=== PATIENT | male | born 1985 | race Caucasian/White ===

== ENCOUNTER 2018-02-06 22:19 | Inpatient (IN) | payer OTHER ==
[2018-02-06] MEDS ORDERED: ACETAMINOPHEN 325 MG TAB PO (23:30)
[2018-02-06] MEDS ORDERED: ONDANSETRON 4 MG INJ IV (23:30)
[2018-02-06] MEDS ORDERED: NACL 0.9% 3 ML SYG IV (23:30)
[2018-02-06] MEDS ORDERED: VANCOMYCIN IV PER PHARMACY XX (23:30)
[2018-02-07 00:59] LABS: ADD MAN DIFF? NO
[2018-02-07 01:02] LABS: WHITE BLOOD COUNT 11.4 10^3/ul (4.8-10.8)
[2018-02-07 01:02] LABS: BASOPHILS % 0.1 % (0.0-2.0); HEMATOCRIT 40.3 % (42.0-52.0); HEMOGLOBIN 13.7 g/dl (14.0-18.0); LYMPHOCYTES # 0.8 10^3/ul (0.8-2.9); LYMPHOCYTES % 7.1 % (15.0-51.0); MEAN CORPUSCULAR HEMOGLOBIN 27.5 pg (29.0-33.0); MEAN CORPUSCULAR VOLUME 80.9 fl (82.0-101.0); MEAN PLATELET VOLUME 10.3 fl (7.4-10.4); MONOCYTE # 0.5 10^3/ul (0.3-0.9); MONOCYTES % 4.2 % (0.0-11.0); NEUTROPHILS % 87.7 % (39.0-77.0); PLATELET COUNT 304 10^3/UL (140-415); RED BLOOD COUNT 4.98 10^6/ul (4.70-6.10); RED CELL DISTRIBUTION WIDTH 12.8 % (11.5-14.5)
[2018-02-07 01:20] LABS: ALANINE AMINOTRANSFERASE 24 IU/L (13-69); ALBUMIN 4.4 g/dl (3.3-4.9); ALBUMIN/GLOBULIN RATIO 1.37; ALKALINE PHOSPHATASE 102 IU/L (42-121); ANION GAP 19 (8-16); ASPARTATE AMINO TRANSFERASE 16 IU/L (15-46); BILIRUBIN,INDIRECT 0.1 mg/dl (0-1.1); BILIRUBIN,TOTAL 0.1 mg/dl (0.2-1.3); BLOOD UREA NITROGEN 20 mg/dl (7-20); CALCIUM 9.7 mg/dl (8.4-10.2); CARBON DIOXIDE 28 mmol/L (21-31); CHLORIDE 102 mmol/L (97-110); CHOL/HDL RATIO 4.8 RATIO; CHOLESTEROL 184 mg/dl (100-200); CREATININE 0.83 mg/dl (0.61-1.24); GLUCOSE 141 mg/dl (70-220); HDL CHOLESTEROL 38 mg/dl (28-63); LDL CHOLESTEROL,CALCULATED 128 mg/dl; MAGNESIUM 2.2 mg/dl (1.7-2.5); SODIUM 145 mmol/L (135-144); TOTAL PROTEIN 7.6 g/dl (6.1-8.1); TRIGLYCERIDES 90 mg/dl (0-149)
[2018-02-07] MEDS: PIPER-TAZO 3.375 GM IV (PMX) 100 ML IVPB ×5 (01:26→23:14)
[2018-02-07] MEDS: DEXAMETHASONE 4 MG/ML 1 ML INJ IV ×3 (01:26→11:49)
[2018-02-07 01:33] LABS: HEMOGLOBIN A1C 5.2 % (0-5.9)
[2018-02-07 01:49] LABS: THYROID STIMULATING HORMONE 0.231 MIU/L (0.465-4.680)
[2018-02-07 02:12] LABS: C-REACTIVE PROTEIN 20.7 mg/dl (0.0-0.9)
[2018-02-07 02:19] LABS: ERYTHROCYTE SEDIMENTATION RATE 59 mm/Hr (0-15)
[2018-02-07] MEDS: VANCOMYCIN 1.5 GM in SOD CHLORIDE 0.9% 250 ML IVPB ×3 (02:21→18:57)
[2018-02-07] MEDS: PANTOPRAZOLE (EC) 40 MG TAB PO (09:40)
[2018-02-07] MEDS: KETOROLAC 30 MG INJ IV ×2 (11:49→23:15)
[2018-02-07 23:02] LABS: SITE Left Upper Forearm; TIME 2250
[2018-02-08 01:51] LABS: VANCOMYCIN,TROUGH 16.7 ug/ml (10.0-20.0)
[2018-02-08] MEDS: VANCOMYCIN 1.5 GM in SOD CHLORIDE 0.9% 250 ML IVPB ×3 (02:22→18:43)
[2018-02-08] MEDS: KETOROLAC 30 MG INJ IV ×3 (05:21→22:29)
[2018-02-08] MEDS: PIPER-TAZO 3.375 GM IV (PMX) 100 ML IVPB ×4 (05:25→22:10)
[2018-02-08 06:15] LABS: ABNORMAL IP MESSAGE 1; HEMATOCRIT 34.4 % (42.0-52.0); HEMOGLOBIN 11.8 g/dl (14.0-18.0); MEAN CORPUSCULAR HEMOGLOBIN 27.6 pg (29.0-33.0); MEAN CORPUSCULAR HGB CONC 34.3 g/dl (32.0-37.0); MEAN CORPUSCULAR VOLUME 80.6 fl (82.0-101.0); MEAN PLATELET VOLUME 10.5 fl (7.4-10.4); PLATELET COUNT 288 10^3/UL (140-415); POSITIVE DIFF @See below; RED BLOOD COUNT 4.27 10^6/ul (4.70-6.10); RED CELL DISTRIBUTION WIDTH 13.2 % (11.5-14.5)
[2018-02-08 06:15] LABS: WHITE BLOOD COUNT 14.6 10^3/ul (4.8-10.8)
[2018-02-08 06:29] LABS: ADD MAN DIFF? YES
[2018-02-08 06:51] LABS: ANION GAP 18 (8-16); BLOOD UREA NITROGEN 18 mg/dl (7-20); CALCIUM 8.9 mg/dl (8.4-10.2); CARBON DIOXIDE 24 mmol/L (21-31); CHLORIDE 108 mmol/L (97-110); CREATININE 0.81 mg/dl (0.61-1.24); GLUCOSE 128 mg/dl (70-220); MAGNESIUM 2.1 mg/dl (1.7-2.5); SODIUM 146 mmol/L (135-144)
[2018-02-08] MEDS: HYDROCODONE/APAP (5/325) TAB PO (08:43)
[2018-02-08 09:27] LABS: ANISOCYTOSIS 2+ (0-0); BAND NEUTROPHILS #M 0.4 10^3/ul (0.0-0.6); BAND NEUTROPHILS % (M) 3 % (0-4); GIANT THROMBO% (M) 1 % (0-0); LYMPHOCYTES #M 1.7 10^3/ul (0.8-2.9); LYMPHOCYTES % (M) 12 % (15-51); MICROCYTOSIS 2+ (0-0); MONOCYTE #M 0.1 10^3/ul (0.3-0.9); MONOCYTES % (M) 1 % (0-11); PLATELET ESTIMATE NORMAL; REACTIVE LYMPHOCYTES #M 0.4 10^3/ul (0.0-0.0); REACTIVE LYMPHOCYTES% (M) 3 % (0-0); SEG NEUT #M 11.9 10^3/ul (1.6-7.5); SEGMENTED NEUTROPHILS (M) % 81 % (39-77); SMUDGE%M 4 % (0-0)
[2018-02-08] MEDS: HYDROCODONE/APAP (10/325) TAB PO ×2 (10:42→20:18)
[2018-02-08] MEDS: morphine 2 MG INJ IV (14:44)
[2018-02-08] MEDS: HYDROmorphONE 0.5 MG/0.5 ML SYG IV ×2 (15:27→16:07)
[2018-02-09] MEDS: PIPER-TAZO 3.375 GM IV (PMX) 100 ML IVPB ×5 (02:11→23:14)
[2018-02-09] MEDS: VANCOMYCIN 1.5 GM in SOD CHLORIDE 0.9% 250 ML IVPB ×3 (02:45→17:34)
[2018-02-09] MEDS: HYDROCODONE/APAP (10/325) TAB PO ×3 (02:49→16:47)
[2018-02-09] MEDS: KETOROLAC 30 MG INJ IV ×3 (04:40→21:21)
[2018-02-09 06:16] LABS: WHITE BLOOD COUNT 9.2 10^3/ul (4.8-10.8)
[2018-02-09 06:16] LABS: ABNORMAL IP MESSAGE 1; HEMATOCRIT 36.3 % (42.0-52.0); HEMOGLOBIN 12.2 g/dl (14.0-18.0); MEAN CORPUSCULAR HEMOGLOBIN 27.4 pg (29.0-33.0); MEAN CORPUSCULAR HGB CONC 33.6 g/dl (32.0-37.0); MEAN CORPUSCULAR VOLUME 81.6 fl (82.0-101.0); MEAN PLATELET VOLUME 10.1 fl (7.4-10.4); PLATELET COUNT 253 10^3/UL (140-415); POSITIVE DIFF @See below; RED BLOOD COUNT 4.45 10^6/ul (4.70-6.10); RED CELL DISTRIBUTION WIDTH 13.4 % (11.5-14.5)
[2018-02-09 07:03] LABS: ADD MAN DIFF? YES
[2018-02-09] MEDS: DOCUSATE SODIUM 100 MG CAP PO (08:22)
[2018-02-09 09:44] LABS: ANISOCYTOSIS 1+ (0-0); BAND NEUTROPHILS % (M) 1 % (0-4); LYMPHOCYTES % (M) 11 % (15-51); MONOCYTE #M 0.8 10^3/ul (0.3-0.9); MONOCYTES % (M) 9 % (0-11); OVALOCYTES 1+ (0-0); PLATELET ESTIMATE NORMAL; POIKILOCYTOSIS 1+ (0-0); SEG NEUT #M 7.3 10^3/ul (1.6-7.5); SEGMENTED NEUTROPHILS (M) % 79 % (39-77); SMUDGE%M 4 % (0-0)
[2018-02-09] MEDS: INFLUENZA VIRUS VACCINE 0.5 ML (DISPENSING) IM* (12:11)
[2018-02-09] MEDS: LORAZEPAM 1 MG TAB PO (13:02)
[2018-02-09] MEDS ORDERED: ACETAMINOPHEN 325 MG TAB PO (18:30)
[2018-02-09 21:31] LABS: FORTY EIGHT HOUR READING 0 mm (0-9)
[2018-02-09] MEDS: ONDANSETRON 4 MG INJ IV (23:16)
[2018-02-10] MEDS: VANCOMYCIN 1.5 GM in SOD CHLORIDE 0.9% 250 ML IVPB ×2 (02:06→10:00)
[2018-02-10] MEDS: HYDROCODONE/APAP (10/325) TAB PO ×2 (02:12→05:53)
[2018-02-10] MEDS: PIPER-TAZO 3.375 GM IV (PMX) 100 ML IVPB ×3 (05:55→17:09)
[2018-02-10] MEDS: DOCUSATE SODIUM 100 MG CAP PO (08:15)
[2018-02-10 09:37] LABS: ADD MAN DIFF? NO
[2018-02-10 09:45] LABS: WHITE BLOOD COUNT 9.9 10^3/ul (4.8-10.8)
[2018-02-10 09:45] LABS: BASOPHILS % 0.4 % (0.0-2.0); EOSINOPHILS # 0.1 10^3/ul (0.0-0.5); EOSINOPHILS % 0.7 % (0.0-7.0); HEMATOCRIT 37.8 % (42.0-52.0); HEMOGLOBIN 12.8 g/dl (14.0-18.0); LYMPHOCYTES # 0.9 10^3/ul (0.8-2.9); LYMPHOCYTES % 8.8 % (15.0-51.0); MEAN CORPUSCULAR HEMOGLOBIN 27.2 pg (29.0-33.0); MEAN CORPUSCULAR HGB CONC 33.9 g/dl (32.0-37.0); MEAN CORPUSCULAR VOLUME 80.4 fl (82.0-101.0); MEAN PLATELET VOLUME 10.1 fl (7.4-10.4); MONOCYTE # 0.9 10^3/ul (0.3-0.9); MONOCYTES % 8.6 % (0.0-11.0); NEUTROPHIL # 7.9 10^3/ul (1.6-7.5); NEUTROPHILS % 79.8 % (39.0-77.0); NUCLEATED RED BLOOD CELLS% 0.2 /100WBC (0.0-0.0); PLATELET COUNT 257 10^3/UL (140-415)
[2018-02-10 10:05] LABS: ALANINE AMINOTRANSFERASE 38 IU/L (13-69); ALBUMIN 3.6 g/dl (3.3-4.9); ALBUMIN/GLOBULIN RATIO 1.16; ALKALINE PHOSPHATASE 68 IU/L (42-121); ANION GAP 15 (8-16); ASPARTATE AMINO TRANSFERASE 16 IU/L (15-46); BILIRUBIN,INDIRECT 0.3 mg/dl (0-1.1); BILIRUBIN,TOTAL 0.3 mg/dl (0.2-1.3); BLOOD UREA NITROGEN 11 mg/dl (7-20); CALCIUM 8.8 mg/dl (8.4-10.2); CARBON DIOXIDE 29 mmol/L (21-31); CHLORIDE 98 mmol/L (97-110); CREATININE 0.96 mg/dl (0.61-1.24); GLUCOSE 120 mg/dl (70-220); POTASSIUM 3.7 mmol/L (3.5-5.1); SODIUM 138 mmol/L (135-144); TOTAL PROTEIN 6.7 g/dl (6.1-8.1)
[2018-02-10 10:09] LABS: VANCOMYCIN,TROUGH 12.6 ug/ml (10.0-20.0)
[2018-02-10] MEDS: SOD CHLORIDE 0.9% 100 ML (10:09)
[2018-02-10] MEDS: IOHEXOL 300MG/ML 150 ML BTL (10:09)
[2018-02-10 12:43] LABS: ADD UMIC NO; UR ASCORBIC ACID NEGATIVE (NEGATIVE); UR BILIRUBIN (Dip) NEGATIVE (NEGATIVE); UR BLOOD (Dip) NEGATIVE (NEGATIVE); UR CLARITY CLEAR (CLEAR); UR COLOR YELLOW (YELLOW); UR GLUCOSE (Dip) NEGATIVE (NEGATIVE); UR KETONES (Dip) NEGATIVE (NEGATIVE); UR LEUKOCYTE ESTERASE (Dip) NEGATIVE Leu/ul (NEGATIVE); UR NITRITE (Dip) NEGATIVE (NEGATIVE); UR SPECIFIC GRAVITY (Dip) > 1.060 (1.003-1.030); UR TOTAL PROTEIN (Dip) NEGATIVE (NEGATIVE); UR UROBILINOGEN (Dip) NEGATIVE (NEGATIVE)
[2018-02-10] MEDS: IBUPROFEN 600 MG TAB PO (15:57)
[2018-02-10 18:06] LABS: FREE T4 (FREE THYROXINE) 1.28 ng/dl (0.79-2.35)
[2018-02-10] MEDS: ZYVOX 600 MG TAB PO (21:20)
[2018-02-10 22:10] LABS: SEVENTY TWO HOUR READING 0 mm (0-9)
[2018-02-11] MEDS: IBUPROFEN 600 MG TAB PO ×2 (01:53→10:02)
[2018-02-11] MEDS: PIPER-TAZO 3.375 GM IV (PMX) 100 ML IVPB ×4 (01:53→18:37)
[2018-02-11] MEDS: DOCUSATE SODIUM 100 MG CAP PO (08:55)
[2018-02-11] MEDS: ZYVOX 600 MG TAB PO ×2 (08:55→20:11)
[2018-02-11] MEDS: LACTOBACILLUS RHAMNOSUS CAP PO ×2 (12:55→20:11)
[2018-02-11 16:52] LABS: LACTATE DEHYDROGENASE 555 IU/L (313-618)
[2018-02-12] MEDS: PIPER-TAZO 3.375 GM IV (PMX) 100 ML IVPB ×5 (00:39→23:46)
[2018-02-12] MEDS: IBUPROFEN 600 MG TAB PO ×2 (00:44→23:47)
[2018-02-12 05:36] LABS: ADD MAN DIFF? NO
[2018-02-12 05:40] LABS: WHITE BLOOD COUNT 8.4 10^3/ul (4.8-10.8)
[2018-02-12 05:40] LABS: BASOPHIL # 0.1 10^3/ul (0.0-0.1); BASOPHILS % 0.6 % (0.0-2.0); EOSINOPHILS # 0.2 10^3/ul (0.0-0.5); EOSINOPHILS % 1.8 % (0.0-7.0); HEMATOCRIT 39.4 % (42.0-52.0); HEMOGLOBIN 13.2 g/dl (14.0-18.0); LYMPHOCYTES # 1.6 10^3/ul (0.8-2.9); LYMPHOCYTES % 18.8 % (15.0-51.0); MEAN CORPUSCULAR HGB CONC 33.5 g/dl (32.0-37.0); MEAN CORPUSCULAR VOLUME 80.7 fl (82.0-101.0); MEAN PLATELET VOLUME 9.7 fl (7.4-10.4); MONOCYTE # 1.1 10^3/ul (0.3-0.9); MONOCYTES % 13.2 % (0.0-11.0); NEUTROPHIL # 5.2 10^3/ul (1.6-7.5); NEUTROPHILS % 62.2 % (39.0-77.0); PLATELET COUNT 269 10^3/UL (140-415); RED BLOOD COUNT 4.88 10^6/ul (4.70-6.10)
[2018-02-12 06:22] LABS: ANION GAP 18 (8-16); BLOOD UREA NITROGEN 16 mg/dl (7-20); CALCIUM 9.1 mg/dl (8.4-10.2); CARBON DIOXIDE 26 mmol/L (21-31); CHLORIDE 106 mmol/L (97-110); CREATININE 1.02 mg/dl (0.61-1.24); GLUCOSE 96 mg/dl (70-220); POTASSIUM 4.5 mmol/L (3.5-5.1); SODIUM 145 mmol/L (135-144)
[2018-02-12 07:01] LABS: LACTATE DEHYDROGENASE 618 IU/L (313-618)
[2018-02-12] MEDS: DOCUSATE SODIUM 100 MG CAP PO (09:00)
[2018-02-12] MEDS: ZYVOX 600 MG TAB PO ×2 (09:09→21:21)
[2018-02-12] MEDS: LACTOBACILLUS RHAMNOSUS CAP PO ×2 (09:09→21:21)
[2018-02-12 18:04] LABS: INR 0.96; PROTIME 12.9 Sec (11.9-14.9)
[2018-02-12 18:05] LABS: PARTIAL THROMBOPLASTIN TIME 30.7 Sec (25.0-35.0)
[2018-02-13 05:57] LABS: WHITE BLOOD COUNT 8.6 10^3/ul (4.8-10.8)
[2018-02-13 05:57] LABS: ABNORMAL IP MESSAGE 1; ADD MAN DIFF? NO; BASOPHIL # 0.1 10^3/ul (0.0-0.1); BASOPHILS % 0.7 % (0.0-2.0); EOSINOPHILS # 0.2 10^3/ul (0.0-0.5); EOSINOPHILS % 2.7 % (0.0-7.0); HEMATOCRIT 39.4 % (42.0-52.0); HEMOGLOBIN 13.2 g/dl (14.0-18.0); LYMPHOCYTES # 2.2 10^3/ul (0.8-2.9); LYMPHOCYTES % 25.6 % (15.0-51.0); MEAN CORPUSCULAR HEMOGLOBIN 27.2 pg (29.0-33.0); MEAN CORPUSCULAR HGB CONC 33.5 g/dl (32.0-37.0); MEAN CORPUSCULAR VOLUME 81.2 fl (82.0-101.0); MEAN PLATELET VOLUME 9.8 fl (7.4-10.4); MONOCYTES % 11.8 % (0.0-11.0); NEUTROPHIL # 4.7 10^3/ul (1.6-7.5); NEUTROPHILS % 54.1 % (39.0-77.0); PLATELET COUNT 280 10^3/UL (140-415); POSITIVE DIFF @See below; RED BLOOD COUNT 4.85 10^6/ul (4.70-6.10); RED CELL DISTRIBUTION WIDTH 13.1 % (11.5-14.5)
[2018-02-13] MEDS: PIPER-TAZO 3.375 GM IV (PMX) 100 ML IVPB ×3 (06:02→18:14)
[2018-02-13 06:19] LABS: ANION GAP 15 (8-16); BLOOD UREA NITROGEN 15 mg/dl (7-20); CALCIUM 9.3 mg/dl (8.4-10.2); CARBON DIOXIDE 28 mmol/L (21-31); CHLORIDE 106 mmol/L (97-110); CREATININE 1.01 mg/dl (0.61-1.24); GLUCOSE 90 mg/dl (70-220); POTASSIUM 4.2 mmol/L (3.5-5.1); SODIUM 145 mmol/L (135-144)
[2018-02-13] MEDS ORDERED: CEFAZOLIN 1 GM INJ (07:00)
[2018-02-13] MEDS ORDERED: BUPIVACAINE 0.25%/EPI (MDV) 50 ML VIAL INJ (07:00)
[2018-02-13] MEDS: ZYVOX 600 MG TAB PO ×2 (10:22→20:20)
[2018-02-13] MEDS: DOCUSATE SODIUM 100 MG CAP PO ×2 (10:23→10:26)
[2018-02-13] MEDS: LACTOBACILLUS RHAMNOSUS CAP PO ×2 (10:23→20:20)
[2018-02-13] MEDS: SOD CHLORIDE 0.45% 1,000 ML IV (14:52)
[2018-02-13] MEDS ORDERED: MEPERIDINE 25 MG INJ IV (16:00)
[2018-02-13] MEDS ORDERED: EPHEDrine SULFATE 50 MG/5 ML SYG IV (16:00)
[2018-02-13] MEDS ORDERED: OXYCODONE/ACETAMINOPHEN (5/325) TAB PO ×2 (16:00)
[2018-02-13] MEDS ORDERED: KETOROLAC 30 MG INJ IV (16:00)
[2018-02-13] MEDS ORDERED: ONDANSETRON 4 MG INJ IV (16:00)
[2018-02-13] MEDS ORDERED: LABETALOL HCL 20MG INJ IV (16:00)
[2018-02-13] MEDS ORDERED: FENTAnyl 50 MCG/ML VIAL IV ×3 (16:00)
[2018-02-13] MEDS ORDERED: HYDROmorphONE (0.2 MG/ML) 10ML SYG IV ×3 (16:00)
[2018-02-13] MEDS ORDERED: ALBUTEROL 0.083% (NEB) 2.5 MG/3 ML AMP HHN (16:00)
[2018-02-13] MEDS ORDERED: DIPHENHYDRAMINE 50 MG INJ IV (16:00)
[2018-02-13] MEDS ORDERED: MIDAZOLAM 1 MG/ML 2 ML INJ IV (16:00)
[2018-02-13] MEDS ORDERED: hydrALAzine 20 MG INJ IV (16:00)
[2018-02-13] MEDS ORDERED: FENTAnyl 50 MCG/ML VIAL (16:04)
[2018-02-13] MEDS ORDERED: MIDAZOLAM 1 MG/ML 2 ML INJ ×2 (16:04→16:32)
[2018-02-13] MEDS: LIDOCAINE 1% (MPF) 30 ML INJ (16:31)
[2018-02-13] MEDS ORDERED: PROPOFOL 20 ML (17:16)
[2018-02-13] MEDS ORDERED: LIDOCAINE 2% (SDV) 5 ML INJ (17:16)
[2018-02-13] MEDS: IBUPROFEN 600 MG TAB PO (20:20)
[2018-02-14] MEDS: PIPER-TAZO 3.375 GM IV (PMX) 100 ML IVPB ×3 (00:30→12:43)
[2018-02-14] MEDS: SOD CHLORIDE 0.45% 1,000 ML IV (02:50)
[2018-02-14 06:09] LABS: ADD MAN DIFF? NO
[2018-02-14 06:11] LABS: ABNORMAL IP MESSAGE 1; BASOPHIL # 0.1 10^3/ul (0.0-0.1); BASOPHILS % 0.7 % (0.0-2.0); EOSINOPHILS # 0.2 10^3/ul (0.0-0.5); EOSINOPHILS % 1.9 % (0.0-7.0); HEMATOCRIT 39.5 % (42.0-52.0); HEMOGLOBIN 13.3 g/dl (14.0-18.0); LYMPHOCYTES # 2.1 10^3/ul (0.8-2.9); LYMPHOCYTES % 25.1 % (15.0-51.0); MEAN CORPUSCULAR HGB CONC 33.7 g/dl (32.0-37.0); MEAN CORPUSCULAR VOLUME 80.1 fl (82.0-101.0); MEAN PLATELET VOLUME 9.4 fl (7.4-10.4); MONOCYTES % 11.2 % (0.0-11.0); NEUTROPHIL # 4.7 10^3/ul (1.6-7.5); NEUTROPHILS % 55.2 % (39.0-77.0); PLATELET COUNT 290 10^3/UL (140-415); POSITIVE DIFF @See below; RED BLOOD COUNT 4.93 10^6/ul (4.70-6.10); RED CELL DISTRIBUTION WIDTH 13.3 % (11.5-14.5)
[2018-02-14 06:11] LABS: WHITE BLOOD COUNT 8.5 10^3/ul (4.8-10.8)
[2018-02-14 06:42] LABS: ANION GAP 17 (8-16); BLOOD UREA NITROGEN 17 mg/dl (7-20); CALCIUM 8.9 mg/dl (8.4-10.2); CARBON DIOXIDE 26 mmol/L (21-31); CHLORIDE 108 mmol/L (97-110); CREATININE 0.83 mg/dl (0.61-1.24); GLUCOSE 111 mg/dl (70-220); SODIUM 147 mmol/L (135-144)
[2018-02-14] MEDS: LACTOBACILLUS RHAMNOSUS CAP PO (09:31)
[2018-02-14] MEDS: ZYVOX 600 MG TAB PO (09:31)
[2018-02-14] MEDS ORDERED: LIDOCAINE 1% (MPF) 5 ML VIAL SC (12:00)
== END 2018-02-14 18:55 | disposition home health service (06) | DRG 479 ==
LOC: MS2 22:19
PROVIDERS: Internal Medicine
PROC: 0QB03ZX Excision of Lumbar Vertebra, Percutaneous Approach, Diagnostic (ICD-10-PCS; principal; 2018-02-13 16:14)
DX: M89.8X8 Other specified disorders of bone, other site (principal); M54.5 Low back pain; R91.8 Other nonspecific abnormal finding of lung field; E66.9 Obesity, unspecified; Z68.37 Body mass index [BMI] 37.0-37.9, adult
CPT/HCPCS: 71045; 71270; 72110; 72131; 72157; 72158; 76775; 80048; 80053; 80061; 80202; 81003; 83036; 83615; 83735; 84100; 84439; 84443; 85025; 85610; 85651; 85730; 86140; 86480; 86580; 86635; 86850; 86900; 86901; 87040; 87070; 87075; 87086; 87102; 87116; 88307; 90686; 97161